=== PATIENT | male | born 1995 | race Caucasian/White ===

== ENCOUNTER 2018-11-30 19:19 | Emergency (ER) | payer OTHER, MEDICAID ==
[~2018-11-30] VITALS: Ht 188 cm; Wt 75.0 kg
[~2018-11-30 19:19] MED LIST: DOCU250C91 PO; PSYL3.4P5 PO; QUET200T PO; SENN-161 PO
[2018-11-30] MEDS ORDERED: BENZ1TAB10 PO (19:37)
[2018-11-30] MEDS ORDERED: LITH300CRT PO (19:41)
[2018-11-30] MEDS ORDERED: LEVO25TA9 PO (19:41)
[2018-11-30] MEDS ORDERED: QUET300T2 PO (19:41)
[2018-11-30] MEDS ORDERED: ALBU8HFA IH ×2 (19:41)
[2018-11-30 19:57] VITALS: BP 144/83
[2018-11-30] MEDS ORDERED: IBUPROFEN 600 MG TABLET ONE (20:06)
[2018-11-30] MEDS ORDERED: IBUPROFEN 600 MG TABLET PO ONE (20:15)
== END 2018-11-30 22:22 | disposition home or self-care (01) ==
LOC: EMS 19:19
DX: M25.511 Pain in right shoulder (principal); G89.29 Other chronic pain; F20.0 Paranoid schizophrenia; R03.0 Elevated blood-pressure reading, without diagnosis of hypertension

== ENCOUNTER 2022-01-16 21:39 | Inpatient (IN) | payer MEDICAID, OTHER ==
[~2022-01-16] VITALS: Ht 188 cm; Wt 78.1 kg
[~2022-01-16 21:39] MED LIST changes: +ALBU8HFA IH; +BENZ1TAB96 PO; +DOCU-350 PO; -DOCU250C91 PO; +LEVO25TA9 PO; +LITH300CRT PO; -QUET200T PO; +QUET300T2 PO
[2022-01-16] MEDS ORDERED: ONDANSETRON HCL 4 MG/2 ML VIAL IVP ONE (22:45)
[2022-01-16] MEDS ORDERED: METOCLOPRAMIDE HCL 5 MG/ML 2 ML VIAL IVP ONE (22:45)
[2022-01-16] MEDS ORDERED: SODIUM CHLORIDE 0.9% 1,000 ML IV ONE (22:45)
[2022-01-16] MEDS ORDERED: DiphenhydrAMINE HCL 50 MG/ML VIAL IVP ONE (22:45)
[2022-01-16 22:57] LABS: BASOPHILS % (AUTO) 0.6 % (0.0-2.0); EOSINOPHILS % (AUTO) 1.5 % (1.0-6.0); HEMATOCRIT 46.7 % (41-53); LYMPHOCYTES # (AUTO) 1.4 K/uL (1.0-4.8); MEAN CORPUSCULAR HEMOGLOBIN 29.7 pg (26.0-34.0); MEAN CORPUSCULAR HGB CONC 34.3 G/dL (31.0-37.0); MEAN CORPUSCULAR VOLUME 87 fL (80-100); MONOCYTES # (AUTO) 0.8 K/uL (0.1-1.0); MONOCYTES % (AUTO) 14.3 % (2.0-9.0); NEUTROPHILS # (AUTO) 3.1 K/uL (1.8-7.7); NEUTROPHILS % (AUTO) 57.6 % (40.0-70.0); PLATELET COUNT (AUTO) 189 K/uL (150-450); RED BLOOD CELL COUNT(AUTO) 5.39 MIL/uL (4.50-5.90); RED CELL DISTRIBUTION WIDTH 13.3 % (11.5-14.5)
[2022-01-16 23:07] LABS: ANION GAP 7 mmol/L (8-16); CALCIUM, TOTAL 9.5 mg/dL (8.8-10.5); CARBON DIOXIDE 29 mmol/L (22-29); CHLORIDE 102 mmol/L (98-107); CREATININE 1.06 mg/dL (0.60-1.30); GLUCOSE,RANDOM 72 mg/dL (70-110); POTASSIUM 3.6 mmol/L (3.5-5.1); SODIUM SERUM 138 mmol/L (136-145); UREA NITROGEN, BLOOD 15 mg/dL (7-18)
[2022-01-16 23:09] LABS: GLOMERULAR FILTR. RATE CALC > 60 mL/min (>60)
[2022-01-16 23:24] LABS: ALANINE AMINOTRANSFERASE 19 U/L (12-78); ALBUMIN 4.8 g/dL (3.4-5.0); ALKALINE PHOSPHATASE 66 U/L (46-116); ASPARTATE AMINOTRANSFERASE 15 U/L (15-37); BILIRUBIN,TOTAL 0.7 mg/dL (0.1-1.0); THYROID STIMULATING HORMONE 4.61 uIU/mL (0.36-3.74); TOTAL PROTEIN, SERUM 8.1 g/dL (6.4-8.2)
[2022-01-16 23:44] LABS: COVID AG,FIA SOURCE NASOPHARYNGEAL
[2022-01-16] MEDS ORDERED: ACETAMINOPHEN 500 MG TABLET PO ONE (23:45)
[2022-01-16] MEDS ORDERED: LEVOTHYROXINE SODIUM 25 MCG TABLET PO ONE (23:45)
[2022-01-16 23:55] LABS: AMPHET/METH SCREEN,URINE NEGATIVE (NEGATIVE); BARBITURATE SCREEN, URINE NEGATIVE (NEGATIVE); BENZODIAZEPINES SCREEN,URINE NEGATIVE (NEGATIVE); CANNABINOID SCREEN,URINE NEGATIVE (NEGATIVE); COCAINE SCREEN,URINE NEGATIVE (NEGATIVE); METHADONE SCREEN, URINE NEGATIVE (NEGATIVE); OPIATE SCREEN,URINE NEGATIVE (NEGATIVE)
[2022-01-16 23:59] LABS: PHENCYCLIDINE SCREEN,URINE NEGATIVE (NEGATIVE)
[2022-01-17] MEDS ORDERED: HALOPERIDOL 5 MG TABLET PO PRN
[2022-01-17] MEDS ORDERED: LORazepam 2 MG TABLET PO PRN
[2022-01-17] MEDS ORDERED: ZOLPIDEM TARTRATE 10 MG TABLET PO PRN
[2022-01-17 00:44] LABS: APPEARANCE,URINE CLEAR (CLEAR); BILIRUBIN,URINE NEGATIVE (NEGATIVE); GLUCOSE, URINE (UA) NEGATIVE (NEGATIVE); KETONES,URINE NEGATIVE (NEGATIVE); LEUKOCYTE ESTERASE ,URINE NEGATIVE (NEGATIVE); NITRATE,URINE NEGATIVE (NEGATIVE); OCCULT BLOOD,URINE NEGATIVE (NEGATIVE); PROTEIN,URINE NEGATIVE (NEGATIVE); SPECIFIC GRAVITIY, URINE 1.006 (1.003-1.030); UROBILINOGEN,URINE <=1.0 mg/dL (<=1.0)
[2022-01-17 09:36] VITALS: BP 120/60
[2022-01-17] MEDS ORDERED: FLUV100T22 PO (09:48)
[2022-01-17] MEDS: FluvoxaMINE MALEATE 50 MG TABLET PO SCH (12:48)
[2022-01-17] MEDS ORDERED: GABAPENTIN 300 MG CAPSULE PO SCH (13:00)
[2022-01-17] MEDS: GABAPENTIN 300 MG CAPSULE PO SCH (16:14)
[2022-01-17] MEDS ORDERED: ONDANSETRON HCL 4 MG TABLET PO PRN (16:30)
[2022-01-17] MEDS ORDERED: MAG HYDROX/AL HYDROX/SIMETH ES 30 ML SUSPENSION UDCUP PO PRN (16:30)
[2022-01-17] MEDS ORDERED: ALBUTEROL SULFATE HFA 90 MCG/PUFF 8 GM INHALER IH PRN (16:30)
[2022-01-17] MEDS ORDERED: IBUPROFEN 400 MG TABLET PO PRN (16:30)
[2022-01-17] MEDS ORDERED: ACETAMINOPHEN 325 MG TABLET PO PRN (16:30)
[2022-01-17] MEDS ORDERED: DOCUSATE SODIUM 100 MG CAPSULE PO PRN (16:30)
[2022-01-17] MEDS ORDERED: MAGNESIUM HYDROXIDE SUSPENSION 30 ML UDCUP PO PRN (16:30)
[2022-01-17] MEDS ORDERED: GuaiFENesin/D-METHORPHAN [SUGAR-FREE] 200-20MG/10 ML SYRUP UDCUP PO PRN (16:30)
[2022-01-17] MEDS ORDERED: PETROLATUM,WHITE 28 GM JELLY TP PRN (16:30)
[2022-01-17] MEDS ORDERED: NICOTINE 14 MG/24 HOUR PATCH TD PRN (16:30)
[2022-01-17] MEDS ORDERED: CloNIDine HCL 0.1 MG TABLET PO PRN (16:30)
[2022-01-17] MEDS ORDERED: LOPERAMIDE HCL 2 MG CAPSULE PO PRN (16:30)
[2022-01-17 17:17] VITALS: BP 122/72
[2022-01-17 20:09] VITALS: BP 101/60
[2022-01-17] MEDS: QUEtiapine FUMARATE 300 MG TABLET PO SCH (20:28)
[2022-01-18] MEDS: LEVOTHYROXINE SODIUM 25 MCG TABLET PO SCH (06:03)
[2022-01-18] MEDS: FluvoxaMINE MALEATE 50 MG TABLET PO SCH (08:04)
[2022-01-18] MEDS: GABAPENTIN 300 MG CAPSULE PO SCH ×3 (08:05→17:01)
[2022-01-18 08:07] VITALS: BP 112/60
[2022-01-18] MEDS: QUEtiapine FUMARATE 300 MG TABLET PO SCH (20:08)
[2022-01-18 20:09] VITALS: BP 132/66
[2022-01-19] MEDS: LEVOTHYROXINE SODIUM 25 MCG TABLET PO SCH (06:26)
[2022-01-19] MEDS: GABAPENTIN 300 MG CAPSULE PO SCH ×3 (08:20→17:03)
[2022-01-19] MEDS: FluvoxaMINE MALEATE 50 MG TABLET PO SCH (08:20)
[2022-01-19 20:04] VITALS: BP 111/71
[2022-01-19] MEDS: QUEtiapine FUMARATE 300 MG TABLET PO SCH (20:40)
[2022-01-20] MEDS: LEVOTHYROXINE SODIUM 25 MCG TABLET PO SCH (06:14)
[2022-01-20 08:03] VITALS: BP 122/64
[2022-01-20] MEDS: GABAPENTIN 300 MG CAPSULE PO SCH ×3 (08:41→17:01)
[2022-01-20] MEDS: FluvoxaMINE MALEATE 50 MG TABLET PO SCH (08:41)
[2022-01-20 20:07] VITALS: BP 110/61
[2022-01-20] MEDS: QUEtiapine FUMARATE 300 MG TABLET PO SCH (20:31)
[2022-01-21] MEDS: LEVOTHYROXINE SODIUM 25 MCG TABLET PO SCH (06:18)
[2022-01-21 08:08] VITALS: BP 130/81
[2022-01-21] MEDS: GABAPENTIN 300 MG CAPSULE PO SCH ×3 (08:39→16:49)
[2022-01-21] MEDS: FluvoxaMINE MALEATE 50 MG TABLET PO SCH (08:39)
[2022-01-21] MEDS ORDERED: GABA600T10 PO (13:11)
[2022-01-21] MEDS ORDERED: PROP10TA72 PO (13:11)
[2022-01-21] MEDS ORDERED: OLAN10TA74 PO (13:11)
[2022-01-21] MEDS: QUEtiapine FUMARATE 300 MG TABLET PO SCH (20:23)
[2022-01-21 20:32] VITALS: BP 111/64
[2022-01-22] MEDS: LEVOTHYROXINE SODIUM 25 MCG TABLET PO SCH (06:21)
[2022-01-22] MEDS: GABAPENTIN 300 MG CAPSULE PO SCH ×3 (08:13→17:07)
[2022-01-22] MEDS: FluvoxaMINE MALEATE 50 MG TABLET PO SCH (08:13)
[2022-01-22 08:15] VITALS: BP 100/60
[2022-01-22 20:39] VITALS: BP 104/67
[2022-01-22] MEDS: QUEtiapine FUMARATE 300 MG TABLET PO SCH (20:56)
[2022-01-23] MEDS: LEVOTHYROXINE SODIUM 25 MCG TABLET PO SCH (06:35)
[2022-01-23 08:17] VITALS: BP 122/68
[2022-01-23] MEDS: GABAPENTIN 300 MG CAPSULE PO SCH ×3 (08:51→17:10)
[2022-01-23] MEDS: FluvoxaMINE MALEATE 50 MG TABLET PO SCH (08:52)
[2022-01-23 20:08] VITALS: BP 102/60
[2022-01-23] MEDS: QUEtiapine FUMARATE 300 MG TABLET PO SCH (20:43)
[2022-01-24] MEDS: LEVOTHYROXINE SODIUM 25 MCG TABLET PO SCH (06:27)
[2022-01-24 08:14] VITALS: BP 128/63
[2022-01-24] MEDS: GABAPENTIN 300 MG CAPSULE PO SCH ×3 (08:29→16:49)
[2022-01-24] MEDS: FluvoxaMINE MALEATE 50 MG TABLET PO SCH (08:29)
[2022-01-24 20:13] VITALS: BP 106/62
[2022-01-24] MEDS: QUEtiapine FUMARATE 300 MG TABLET PO SCH (21:17)
[2022-01-25] MEDS: LEVOTHYROXINE SODIUM 25 MCG TABLET PO SCH (06:30)
[2022-01-25 08:25] VITALS: BP 100/63
[2022-01-25] MEDS: GABAPENTIN 300 MG CAPSULE PO SCH ×3 (09:15→16:19)
[2022-01-25] MEDS: FluvoxaMINE MALEATE 50 MG TABLET PO SCH (09:15)
[2022-01-25] MEDS: QUEtiapine FUMARATE 300 MG TABLET PO SCH (20:09)
[2022-01-25 20:20] VITALS: BP 106/67
[2022-01-26] MEDS: LEVOTHYROXINE SODIUM 25 MCG TABLET PO SCH (06:16)
[2022-01-26] MEDS: FluvoxaMINE MALEATE 50 MG TABLET PO SCH (08:11)
[2022-01-26] MEDS: GABAPENTIN 300 MG CAPSULE PO SCH ×3 (08:11→16:16)
[2022-01-26 08:43] VITALS: BP 111/68
[2022-01-26 17:41] LABS: GLUCOMETER DEV NAME(LOC) POC.BV
[2022-01-26] MEDS: QUEtiapine FUMARATE 300 MG TABLET PO SCH (20:06)
[2022-01-27 04:22] VITALS: BP 112/62
[2022-01-27] MEDS: LEVOTHYROXINE SODIUM 25 MCG TABLET PO SCH (06:00)
[2022-01-27 08:39] VITALS: BP 108/60
[2022-01-27] MEDS: GABAPENTIN 300 MG CAPSULE PO SCH ×3 (08:40→17:37)
[2022-01-27] MEDS: FluvoxaMINE MALEATE 50 MG TABLET PO SCH (08:40)
[2022-01-27 20:13] VITALS: BP 116/62
[2022-01-27] MEDS: QUEtiapine FUMARATE 300 MG TABLET PO SCH (20:26)
[2022-01-28] MEDS: LEVOTHYROXINE SODIUM 25 MCG TABLET PO SCH (06:42)
[2022-01-28] MEDS: GABAPENTIN 300 MG CAPSULE PO SCH ×3 (08:18→16:59)
[2022-01-28] MEDS: FluvoxaMINE MALEATE 50 MG TABLET PO SCH (08:19)
[2022-01-28 08:24] VITALS: BP 112/62
[2022-01-28 20:11] VITALS: BP 106/62
[2022-01-28] MEDS: QUEtiapine FUMARATE 300 MG TABLET PO SCH (20:52)
[2022-01-29] MEDS: LEVOTHYROXINE SODIUM 25 MCG TABLET PO SCH (06:26)
[2022-01-29 08:11] VITALS: BP 101/69
[2022-01-29] MEDS: FluvoxaMINE MALEATE 50 MG TABLET PO SCH (08:12)
[2022-01-29] MEDS: GABAPENTIN 300 MG CAPSULE PO SCH ×3 (08:12→17:29)
[2022-01-29 20:32] VITALS: BP 104/65
[2022-01-29] MEDS: QUEtiapine FUMARATE 300 MG TABLET PO SCH (20:36)
[2022-01-30] MEDS: LEVOTHYROXINE SODIUM 25 MCG TABLET PO SCH (06:25)
[2022-01-30] MEDS: FluvoxaMINE MALEATE 50 MG TABLET PO SCH (08:19)
[2022-01-30] MEDS: GABAPENTIN 300 MG CAPSULE PO SCH ×3 (08:19→17:33)
[2022-01-30 08:33] VITALS: BP 101/67
[2022-01-30] MEDS: QUEtiapine FUMARATE 300 MG TABLET PO SCH (20:23)
[2022-01-30 20:43] VITALS: BP 110/69
[2022-01-31] MEDS: LEVOTHYROXINE SODIUM 25 MCG TABLET PO SCH (06:06)
[2022-01-31 08:17] VITALS: BP 113/61
[2022-01-31] MEDS: GABAPENTIN 300 MG CAPSULE PO SCH ×3 (08:30→16:26)
[2022-01-31 20:15] VITALS: BP 115/70
[2022-01-31] MEDS: QUEtiapine FUMARATE 300 MG TABLET PO SCH (21:27)
[2022-01-31] MEDS: ACETAMINOPHEN 325 MG TABLET PO PRN (22:41)
[2022-02-01] MEDS: LEVOTHYROXINE SODIUM 25 MCG TABLET PO SCH (06:22)
[2022-02-01] MEDS: GABAPENTIN 300 MG CAPSULE PO SCH ×3 (08:40→17:15)
[2022-02-01 20:12] VITALS: BP 106/71
[2022-02-01] MEDS ORDERED: DiphenhydrAMINE HCL 50 MG/ML VIAL ONE (20:52)
[2022-02-01] MEDS ORDERED: HALOPERIDOL LACTATE 5 MG/ML VIAL ONE (20:52)
[2022-02-01] MEDS: QUEtiapine FUMARATE 300 MG TABLET PO SCH (21:00)
[2022-02-01] MEDS ORDERED: HALOPERIDOL LACTATE 5 MG/ML VIAL IM ONE (21:00)
[2022-02-01] MEDS ORDERED: DiphenhydrAMINE HCL 50 MG/ML VIAL IM ONE (21:00)
[2022-02-01] MEDS ORDERED: LORazepam 2 MG/ML VIAL IM ONE (21:00)
[2022-02-02] MEDS: LEVOTHYROXINE SODIUM 25 MCG TABLET PO SCH (06:34)
[2022-02-02 08:07] VITALS: BP 128/74
[2022-02-02] MEDS: GABAPENTIN 300 MG CAPSULE PO SCH ×3 (08:26→16:24)
[2022-02-02] MEDS ORDERED: PROMETHAZINE HCL 25 MG TABLET PO PRN (13:30)
[2022-02-02 20:30] VITALS: BP 140/65
[2022-02-02] MEDS: QUEtiapine FUMARATE 300 MG TABLET PO SCH (20:35)
[2022-02-03] MEDS: LEVOTHYROXINE SODIUM 25 MCG TABLET PO SCH (06:13)
[2022-02-03] MEDS: GABAPENTIN 300 MG CAPSULE PO SCH ×3 (08:49→16:13)
[2022-02-03 16:37] LABS: GLUCOMETER DEV NAME(LOC) POC.BV
[2022-02-03 20:13] VITALS: BP 102/68
[2022-02-03] MEDS: QUEtiapine FUMARATE 300 MG TABLET PO SCH (20:14)
[2022-02-03 20:20] VITALS: BP 112/75
[2022-02-04 04:54] VITALS: BP 110/65
[2022-02-04] MEDS: LEVOTHYROXINE SODIUM 25 MCG TABLET PO SCH (06:22)
[2022-02-04] MEDS: GABAPENTIN 300 MG CAPSULE PO SCH ×3 (08:20→16:10)
[2022-02-04 20:14] VITALS: BP 107/69
[2022-02-04] MEDS: QUEtiapine FUMARATE 300 MG TABLET PO SCH (20:15)
[2022-02-04 20:20] VITALS: BP 107/69
[2022-02-04] MEDS: ACETAMINOPHEN 325 MG TABLET PO PRN (20:21)
[2022-02-05] MEDS: LEVOTHYROXINE SODIUM 25 MCG TABLET PO SCH (06:36)
[2022-02-05] MEDS: GABAPENTIN 300 MG CAPSULE PO SCH ×3 (08:28→17:13)
[2022-02-05 20:08] VITALS: BP 111/72
[2022-02-05] MEDS: QUEtiapine FUMARATE 300 MG TABLET PO SCH (20:30)
[2022-02-05] MEDS: ACETAMINOPHEN 325 MG TABLET PO PRN (20:30)
[2022-02-05 21:09] VITALS: BP 140/80
[2022-02-06] MEDS: LEVOTHYROXINE SODIUM 25 MCG TABLET PO SCH (06:29)
[2022-02-06] MEDS: GABAPENTIN 300 MG CAPSULE PO SCH ×3 (08:15→17:44)
[2022-02-06 08:23] VITALS: BP 111/72
[2022-02-06 20:08] VITALS: BP 98/60
[2022-02-06] MEDS: ACETAMINOPHEN 325 MG TABLET PO PRN (20:39)
[2022-02-06] MEDS: QUEtiapine FUMARATE 300 MG TABLET PO SCH (20:39)
[2022-02-07 04:43] VITALS: BP 105/71
[2022-02-07] MEDS: LEVOTHYROXINE SODIUM 25 MCG TABLET PO SCH (06:24)
[2022-02-07] MEDS: GABAPENTIN 300 MG CAPSULE PO SCH ×3 (08:26→17:07)
[2022-02-07 09:37] VITALS: BP 116/70
[2022-02-07] MEDS: QUEtiapine FUMARATE 300 MG TABLET PO SCH (20:25)
[2022-02-07] MEDS: ACETAMINOPHEN 325 MG TABLET PO PRN (20:26)
[2022-02-07 20:27] VITALS: BP 107/73
[2022-02-08] MEDS: LEVOTHYROXINE SODIUM 25 MCG TABLET PO SCH (06:38)
[2022-02-08] MEDS: GABAPENTIN 300 MG CAPSULE PO SCH ×3 (08:24→16:22)
[2022-02-08] MEDS: QUEtiapine FUMARATE 300 MG TABLET PO SCH (20:04)
[2022-02-08 20:40] VITALS: BP 110/72
[2022-02-08] MEDS: ACETAMINOPHEN 325 MG TABLET PO PRN (20:41)
[2022-02-09] MEDS: LEVOTHYROXINE SODIUM 25 MCG TABLET PO SCH (06:29)
[2022-02-09] MEDS: GABAPENTIN 300 MG CAPSULE PO SCH ×3 (08:09→16:59)
[2022-02-09 08:40] VITALS: BP 100/61
[2022-02-09] MEDS: QUEtiapine FUMARATE 300 MG TABLET PO SCH (20:24)
[2022-02-10] MEDS: LEVOTHYROXINE SODIUM 25 MCG TABLET PO SCH (06:25)
[2022-02-10 08:05] VITALS: BP 102/60
[2022-02-10] MEDS: GABAPENTIN 300 MG CAPSULE PO SCH ×2 (08:13→13:00)
[2022-02-10] MEDS ORDERED: QUET300T2 PO (09:16)
[2022-02-10] MEDS ORDERED: GABA600T10 PO (09:16)
[2022-02-10] MEDS ORDERED: LEVO25TA9 PO (09:16)
[2022-02-10 11:11] LABS: GLUCOMETER DEV NAME(LOC) POC.BV
== END 2022-02-10 13:40 | disposition home or self-care (01) | DRG 750 ==
LOC: EMS 21:41 → B3A 01-17 04:54
PROVIDERS: ADMIT Psychiatry & Neurology Psychiatry; ATTEND Psychiatry & Neurology Psychiatry
DX: F20.0 Paranoid schizophrenia (principal); R45.851 Suicidal ideations; E03.9 Hypothyroidism, unspecified; F06.4 Anxiety disorder due to known physiological condition; F42.9 Obsessive-compulsive disorder, unspecified; F84.0 Autistic disorder; J45.909 Unspecified asthma, uncomplicated; K59.00 Constipation, unspecified; Z20.822 Contact with and (suspected) exposure to COVID-19; Z79.899 Other long term (current) drug therapy
CPT/HCPCS: 70450; 80053; 81003; 84443; 85025; 99285; G0480; J1200; J1630; J2060; J2765

== ENCOUNTER 2022-05-23 16:31 | Emergency (ER) | payer MEDICAID, OTHER ==
[~2022-05-23] VITALS: Ht 188 cm; Wt 77.3 kg
[~2022-05-23 16:31] MED LIST changes: -ALBU8HFA IH; -BENZ1TAB96 PO; -DOCU-350 PO; +GABA600T10 PO; -LITH300CRT PO; -PSYL3.4P5 PO; -SENN-161 PO
[2022-05-23] MEDS ORDERED: DiphenhydrAMINE HCL 50 MG/ML VIAL IVP ONE (17:45)
[2022-05-23] MEDS ORDERED: KETOROLAC TROMETHAMINE 30 MG/ML VIAL IVP ONE (17:45)
[2022-05-23] MEDS ORDERED: METOCLOPRAMIDE HCL 5 MG/ML 2 ML VIAL IVP ONE (17:45)
[2022-05-23] MEDS ORDERED: SODIUM CHLORIDE 0.9% 1,000 ML IV ONE (17:45)
[2022-05-23] MEDS ORDERED: GABA600T10 PO (19:03)
[2022-05-23] MEDS ORDERED: GABAPENTIN 300 MG CAPSULE PO ONE (19:15)
[2022-05-23 19:30] VITALS: BP 124/78
== END 2022-05-23 19:44 | disposition home or self-care (01) ==
LOC: EMS 16:31
DX: R51.9 Headache, unspecified (principal); F32.A Depression, unspecified; F20.9 Schizophrenia, unspecified; E03.9 Hypothyroidism, unspecified; F20.0 Paranoid schizophrenia; F45.21 Hypochondriasis; F84.0 Autistic disorder
CPT/HCPCS: 99284; 96374; 70450; 96375; 96361; J1200; J1885; J2765; J7030

== ENCOUNTER 2023-11-22 12:14 | Emergency (ER) | payer OTHER ==
[~2023-11-22] VITALS: Ht 188 cm; Wt 88.6 kg
[2023-11-22] MEDS ORDERED: ZOLPIDEM TARTRATE 10 MG TABLET PO PRN (15:00)
[2023-11-22] MEDS ORDERED: HALOPERIDOL 5 MG TABLET PO PRN (15:00)
[2023-11-22] MEDS ORDERED: LORazepam 2 MG TABLET PO PRN (15:00)
[2023-11-22 19:35] VITALS: BP 154/65; PULSE 90; RESP 18; TEMP 98.9
== END 2023-11-22 16:00 | disposition left against medical advice (07) ==
LOC: EMS 12:14
DX: F20.9 Schizophrenia, unspecified (principal); F32.A Depression, unspecified; F84.0 Autistic disorder
CPT/HCPCS: 99281; 99283; 99285

== ENCOUNTER 2024-01-11 10:27 | Inpatient (IN) | payer MEDICAID, OTHER ==
[~2024-01-11] VITALS: Ht 190.5 cm; Wt 70.8 kg
[2024-01-11 16:08] LABS: BASOPHILS % (AUTO) 0.4 % (0.0-2.0); EOSINOPHILS % (AUTO) 1.8 % (1.0-6.0); HEMATOCRIT 47.6 % (41-53); HEMOGLOBIN 16.2 g/dL (13.5-17.5); LYMPHOCYTES # (AUTO) 1.5 K/uL (1.0-4.8); LYMPHOCYTES % (AUTO) 33.5 % (22.0-44.0); MEAN CORPUSCULAR HEMOGLOBIN 29.6 pg (26.0-34.0); MEAN CORPUSCULAR VOLUME 87 fL (80-100); MONOCYTES # (AUTO) 0.5 K/uL (0.1-1.0); NEUTROPHILS # (AUTO) 2.3 K/uL (1.8-7.7); NEUTROPHILS % (AUTO) 52.3 % (40.0-70.0); PLATELET COUNT (AUTO) 181 K/uL (150-450); RED BLOOD CELL COUNT(AUTO) 5.45 MIL/uL (4.50-5.90); RED CELL DISTRIBUTION WIDTH 13.2 % (11.5-14.5); WHITE BLOOD COUNT (AUTO) 4.4 K/uL (4.5-11.0)
[2024-01-11 16:13] LABS: ANION GAP 9 mmol/L (8-16); CALCIUM, TOTAL 9.6 mg/dL (8.8-10.5); CARBON DIOXIDE 30 mmol/L (22-29); CHLORIDE 102 mmol/L (98-107); CREATININE 1.04 mg/dL (0.60-1.30); GLOMERULAR FILTR. RATE CALC > 60 mL/min (>60); GLUCOSE,RANDOM 85 mg/dL (70-110); POTASSIUM 3.8 mmol/L (3.5-5.1); SODIUM SERUM 141 mmol/L (136-145); UREA NITROGEN, BLOOD 21 mg/dL (7-18)
[2024-01-11 16:32] LABS: ALCOHOL, BLOOD (SERUM) < 3 mg/dL (0-10)
[2024-01-11 17:53] LABS: COVID AG,FIA SOURCE NASAL SWAB
[2024-01-11 18:14] LABS: SARS-COV2 (COVID) ANTIGEN,FIA Negative (Negative)
[2024-01-11] MEDS: QUEtiapine FUMARATE 200 MG TABLET PO SCH (20:35)
[2024-01-11] MEDS: MELATONIN 5 MG TABLET PO SCH (20:35)
[2024-01-11 23:29] VITALS: RESP 18
[2024-01-12] MEDS: ZOLPIDEM TARTRATE 10 MG TABLET PO PRN (01:33)
[2024-01-12] MEDS: OMEGA-3/DHA/EPA/FISH OIL 1,000 MG CAPSULE PO SCH (09:00)
[2024-01-12] MEDS: NALTREXONE HCL 50 MG TABLET PO SCH (09:00)
[2024-01-12 09:45] VITALS: BP 99/56; PULSE 88; RESP 17; TEMP 97.8; O2SAT 98
[2024-01-12] MEDS ORDERED: MAGNESIUM HYDROXIDE SUSPENSION 30 ML UDCUP PO PRN (10:00)
[2024-01-12] MEDS ORDERED: LOPERAMIDE HCL 2 MG CAPSULE PO PRN (10:00)
[2024-01-12] MEDS ORDERED: GuaiFENesin/D-METHORPHAN [SUGAR-FREE] 200-20MG/10 ML SYRUP UDCUP PO PRN (10:00)
[2024-01-12] MEDS ORDERED: PROMETHAZINE HCL 25 MG TABLET PO PRN (10:00)
[2024-01-12] MEDS ORDERED: HydrOXYzine PAMOATE 50 MG CAPSULE PO PRN (10:00)
[2024-01-12] MEDS: TUBERCULIN, PURIFIED PROTEIN DERIVATIVE 5 TU/0.1 ML SYRINGE ID ONE (10:00)
[2024-01-12] MEDS: RisperiDONE ER SUSPENSION 250 MG/0.7 ML PRE-FILLED SYRINGE SQ ONE (10:00)
[2024-01-12 12:27] LABS: APPEARANCE,URINE CLEAR (CLEAR); BILIRUBIN,URINE NEGATIVE (NEGATIVE); COLOR,URINE YELLOW (YELLOW); GLUCOSE, URINE (UA) NEGATIVE (NEGATIVE); LEUKOCYTE ESTERASE ,URINE NEGATIVE (NEGATIVE); NITRATE,URINE NEGATIVE (NEGATIVE); OCCULT BLOOD,URINE NEGATIVE (NEGATIVE); PROTEIN,URINE TRACE mg/dL (NEGATIVE); SPECIFIC GRAVITIY, URINE 1.035 (1.003-1.030)
[2024-01-12 12:43] LABS: ALCOHOL, URINE DRUG SCREEN NEGATIVE (NEGATIVE); AMPHET/METH SCREEN,URINE NEGATIVE (NEGATIVE); BARBITURATE SCREEN, URINE NEGATIVE (NEGATIVE); BENZODIAZEPINES SCREEN,URINE NEGATIVE (NEGATIVE); CANNABINOID SCREEN,URINE NEGATIVE (NEGATIVE); COCAINE SCREEN,URINE NEGATIVE (NEGATIVE); METHADONE SCREEN, URINE NEGATIVE (NEGATIVE); OPIATE SCREEN,URINE NEGATIVE (NEGATIVE); PHENCYCLIDINE SCREEN,URINE NEGATIVE (NEGATIVE)
[2024-01-12] MEDS: THIAMINE 100 MG TABLET PO SCH (17:00)
[2024-01-12 21:28] VITALS: RESP 18
[2024-01-13] MEDS: DiphenhydrAMINE HCL 50 MG/ML VIAL IM ONE (00:06)
[2024-01-13] MEDS: HALOPERIDOL LACTATE 5 MG/ML VIAL IM ONE (00:07)
[2024-01-13] MEDS: LORazepam 2 MG/ML VIAL IM ONE (00:07)
[2024-01-13] MEDS: FOLIC ACID 1 MG TABLET PO SCH (09:00)
[2024-01-13] MEDS: MULTIVITAMINS WITH MINERALS, THERAPEUTIC TABLET PO SCH (09:00)
[2024-01-13] MEDS: LORazepam 2 MG TABLET PO PRN (12:20)
[2024-01-13] MEDS: QUEtiapine FUMARATE 100 MG TABLET PO PRN (12:20)
[2024-01-13] MEDS: QUEtiapine FUMARATE 25 MG TABLET PO SCH (13:00)
[2024-01-14 09:45] VITALS: RESP 18
[2024-01-14] MEDS: SENNOSIDES/DOCUSATE SODIUM 8.6-50 MG TABLET PO SCH (17:00)
[2024-01-14] MEDS: PSYLLIUM SEED ORANGE SF 5.8 GM/PACKET PO SCH (17:14)
[2024-01-14 21:20] VITALS: RESP 18
[2024-01-14] MEDS: IBUPROFEN 600 MG TABLET PO PRN (21:55)
[2024-01-14 22:50] VITALS: RESP 18
[2024-01-15 22:24] VITALS: BP 98/68; PULSE 72; RESP 18; TEMP 98; O2SAT 96
[2024-01-16] MEDS ORDERED: IOHEXOL 350 MG/ML 100 ML VIAL ONE (15:24)
[2024-01-16] MEDS ORDERED: SODIUM CHLORIDE 0.9% 100 ML ONE (15:24)
[2024-01-16 20:57] VITALS: RESP 18
[2024-01-16] MEDS: LORazepam 2 MG/ML VIAL IM ONE (22:43)
[2024-01-16] MEDS: DiphenhydrAMINE HCL 50 MG/ML VIAL IM ONE (22:44)
[2024-01-16] MEDS: HALOPERIDOL LACTATE 5 MG/ML VIAL IM ONE (22:46)
[2024-01-17 08:30] VITALS: RESP 17
[2024-01-17] MEDS: DOCUSATE SODIUM 100 MG CAPSULE PO SCH (11:29)
[2024-01-17] MEDS ORDERED: SODIUM CHLORIDE 0.9% 0 ML ONE (17:15)
[2024-01-17] MEDS ORDERED: IOHEXOL 350 MG/ML 100 ML VIAL ONE (17:15)
[2024-01-17] MEDS ORDERED: 0.9% SODIUM CHLORIDE 10 ML SYRINGE IVP ONE (17:16)
[2024-01-17 20:48] VITALS: RESP 18
[2024-01-18 08:07] VITALS: RESP 18
[2024-01-18 21:52] VITALS: RESP 18
[2024-01-19 09:01] VITALS: BP 87/54; PULSE 51; RESP 17; TEMP 97.6; O2SAT 96
[2024-01-19] MEDS: POLYETHYLENE GLYCOL 3350 17 GM PACKET PO PRN (13:51)
[2024-01-19 21:17] VITALS: BP 94/67; PULSE 88; RESP 18; TEMP 97.5; O2SAT 96
[2024-01-19] MEDS: MAG HYDROX/ALUMINUM HYD/SIMETH ES 30 ML SUSPENSION UDCUP PO PRN (21:20)
[2024-01-19 21:50] VITALS: BP 94/67; PULSE 88; RESP 18; TEMP 97.5; O2SAT 96
[2024-01-19 22:20] VITALS: RESP 18
[2024-01-20 09:21] VITALS: BP 102/62; PULSE 60; RESP 18; TEMP 97.5; O2SAT 99
[2024-01-20] MEDS: ACETAMINOPHEN 325 MG TABLET PO PRN (13:09)
[2024-01-20 13:12] VITALS: RESP 20
[2024-01-20 14:10] VITALS: RESP 18
[2024-01-20] MEDS: QUEtiapine FUMARATE 300 MG TABLET PO SCH (21:10)
[2024-01-20 21:21] VITALS: BP 97/63; PULSE 118; RESP 18; TEMP 97.4; O2SAT 98
[2024-01-21 08:45] VITALS: BP 128/71; PULSE 98; RESP 18; TEMP 97.5; O2SAT 97
[2024-01-21] MEDS ORDERED: OMEG-135 PO (17:35)
[2024-01-21] MEDS ORDERED: MELA5TAB40 PO (17:35)
[2024-01-21] MEDS ORDERED: QUET300T19 PO (17:35)
[2024-01-22 10:08] VITALS: BP 101/66; PULSE 67; RESP 16; TEMP 98.1; O2SAT 98
[2024-01-22] MEDS ORDERED: MELA5TAB40 PO (14:17)
[2024-01-22] MEDS ORDERED: NALT50TA33 PO (14:17)
[2024-01-22] MEDS ORDERED: QUET300T19 PO (14:17)
[2024-03-12] MEDS ORDERED: RisperiDONE ER SUSPENSION 250 MG/0.7 ML PRE-FILLED SYRINGE SQ SCH (09:00)
== END 2024-01-22 13:45 | disposition home or self-care (01) | DRG 750 ==
LOC: EMS 10:27 → 3EC 22:40
PROVIDERS: ADMIT Psychiatry & Neurology Psychiatry; ATTEND Psychiatry & Neurology Psychiatry
PROC: GZHZZZZ Group Psychotherapy (ICD-10-PCS; principal; 2024-01-12)
PROC: GZ51ZZZ Individual Psychotherapy, Behavioral (ICD-10-PCS; 2024-01-12)
PROC: GZ58ZZZ Individual Psychotherapy, Cognitive-Behavioral (ICD-10-PCS; 2024-01-12)
PROC: GZ56ZZZ Individual Psychotherapy, Supportive (ICD-10-PCS; 2024-01-14)
DX: F25.0 Schizoaffective disorder, bipolar type (principal); E03.8 Other specified hypothyroidism; F84.0 Autistic disorder; J45.909 Unspecified asthma, uncomplicated; Z20.822 Contact with and (suspected) exposure to COVID-19; E87.6 Hypokalemia; K59.00 Constipation, unspecified; K60.2 Anal fissure, unspecified; Z79.899 Other long term (current) drug therapy
CPT/HCPCS: 71046; 80048; 80307; 81003; 85025; 99285; G0480; J1200; J1630; J2060; J7050; 36415-L1; 36415-TC

== ENCOUNTER 2024-01-22 16:46 | Emergency (ER) | payer MEDICAID, OTHER ==
[~2024-01-22] VITALS: Ht 182.9 cm; Wt 79.5 kg
[~2024-01-22 16:46] MED LIST changes: -GABA600T10 PO; -LEVO25TA9 PO; +MELA5TAB40 PO; +NALT50TA33 PO; +OMEG-135 PO; +QUET300T19 PO; -QUET300T2 PO
[2024-01-22 16:56] VITALS: BP 127/76; PULSE 86; RESP 20; TEMP 98.9
== END 2024-01-22 17:19 | disposition left against medical advice (07) ==
LOC: EMS 16:46
DX: Z53.21 Procedure and treatment not carried out due to patient leaving prior to being seen by health care provider (principal)